=== PATIENT | male | born 1950 | race Caucasian/White ===

== ENCOUNTER 2018-10-24 10:05 | Day surgery (SDC) | payer MEDICARE, MEDICAID ==
[2018-10-24] MEDS ORDERED: Gentamicin 80 mg in 0.9% NS 160 MG/200 ML BAG IVPB ONE (12:55)
[2018-10-24] MEDS ORDERED: Propofol 10 mg/ml Inj (20 ML) ONE (13:12)
[2018-10-24] MEDS ORDERED: Midazolam 2 MG/2 ML VIAL ONE (13:12)
[2018-10-24] MEDS ORDERED: Lidocaine 2% Jelly (Uro-Jet) ONE (13:18)
[2018-10-24] MEDS ORDERED: ePHEDrine 50 mg/ml Inj ONE (13:42)
[2018-10-24] MEDS ORDERED: Lidocaine Hydrochloride 5 ML INJ ONE (13:42)
[2018-10-24] MEDS ORDERED: Ciprofloxacin 400mg/200ml D5W 400 MG/200 ML BAG IVPB ONE (13:57)
--- NOTE | 2018-10-24 14:08 | PCM.SURG1 ---
Surgeon's Initial Post Op Note - Surgeon's Notes Surgeon: Zaida Aluminizer: DAYANARA Type of Anesthesia: General LMA Anesthesia Administered By: Staff Pre-Operative Diagnosis: BPH/NAGY Operative Findings: BPH/NAGY Post-Operative Diagnosis: BPH/NAGY Operation Performed: TULAP Specimen/Specimens Removed: NA Estimated Blood Loss: EBL {In ML}: 0 Blood Products Given: N/A Drains Used: No Drains Post-Op Condition: Good Date of Surgery/Procedure: 10/24/18 Time of Surgery/Procedure: 14:07
[2018-10-24] MEDS ORDERED: HYDROmorphone 0.5 mg/0.5 ml ISec IVP PRN (14:12)
[2018-10-24 15:32] VITALS: RESP 16
[2018-10-24 16:08] VITALS: BP 117/67; PULSE 68; TEMP 97.7; O2SAT 98
--- NOTE | 2018-10-25 01:01 | OP ---
PROCEDURE DATE: 10/24/2018 PREOPERATIVE DIAGNOSES: Benign prostatic hypertrophy and bladder outlet obstruction with lower urinary tract symptoms. POSTOPERATIVE DIAGNOSES: Benign prostatic hypertrophy and bladder outlet obstruction with lower urinary tract symptoms. PROCEDURE: Transurethral laser ablation of the prostate (GreenLight laser vaporization of the prostate). SURGEON: Jani Cerda MD. FINDINGS: Trilobar hypertrophy of the prostate with bladder outlet obstruction. DESCRIPTION OF PROCEDURE: Prior to the procedure, detailed informed consent was obtained from the patient. He was made aware of all risks and complications of this procedure, and alternatives to GreenLight laser. He was brought into the room and a timeout was taken according to rules and regulations of [facility]. After careful draping and prepping, he was cystoscoped with a laser cystoscope and previous cystoscopic findings were confirmed. The cystoscopic element was removed and the laser resectoscope was inserted within the scope and the vaporization of the prostate which began at 11 o'clock just distal to the bladder neck and the tissue was vaporized just proximal to the verumontanum. The opposite lobe was vaporized in similar fashion as well as the base and the root of tissue. Care was taken to avoid injury to the external sphincter, ureteral orifices, and verumontanum, and no injury occurred. The patient tolerated the procedure very well. There was minimal bleeding. A #20 two-way 5 cc Coude catheter was inserted without any difficulty and was inflated with normal saline. The patient tolerated this procedure well. He will be sent to the recovery room in good condition, provided with prescriptions for Cipro and Toradol and detailed instructions about postoperative care. He will follow up in our office tomorrow for Benz catheter removal. Jani Cerda MD
== END 2018-10-24 16:18 | disposition home or self-care (01) ==
LOC: C.SDS 10:05
PROVIDERS: ATTEND Urology
DX: N40.1 Benign prostatic hyperplasia with lower urinary tract symptoms (principal); N13.8 Other obstructive and reflux uropathy; N32.0 Bladder-neck obstruction
CPT/HCPCS: 52601; J1170; J1580